=== PATIENT | female | born 1990 | race Hispanic/Latino ===

== ENCOUNTER 2018-03-06 13:16 | Emergency (ER) | payer OTHER | END 2018-03-06 17:07 | disposition home or self-care (01) | LOC: M ED 13:16 | DX: M25.561 Pain in right knee (principal); G89.29 Other chronic pain; F41.9 Anxiety disorder, unspecified; F32.9 Major depressive disorder, single episode, unspecified; Z79.899 Other long term (current) drug therapy; Z91.040 Latex allergy status | CPT/HCPCS: 99283 ==